=== PATIENT | female | born 1985 | race Caucasian/White ===

== ENCOUNTER 2018-04-09 19:12 | Emergency (ER) | payer OTHER ==
[2018-04-09 20:07] LABS: BASOPHILS # (AUTO) 0.1 10^3/uL (0.0-0.1); BASOPHILS % (AUTO) 0.6 %; EOSINOPHILS # (AUTO) 0.1 10^3/uL (0.0-0.7); EOSINOPHILS % (AUTO) 1.7 %; HGB - HEMOGLOBIN 13.5 g/dL (12.0-16.0); LYMPHOCYTES # (AUTO) 2.2 10^3/uL (1.5-3.5); LYMPHOCYTES % (AUTO) 25.3 %; MEAN CORPUSCULAR HEMOGLOBIN 32.6 pg (27.0-31.0); MEAN CORPUSCULAR HGB CONC 34.7 g/dL (32.0-36.0); MEAN CORPUSCULAR VOLUME 94.1 fL (81.0-99.0); MEAN PLATELET VOLUME 7.3 fL (7.9-10.8); MONOCYTES # (AUTO) 0.5 10^3/uL (0.0-1.0); MONOCYTES % (AUTO) 6.2 %; NEUTROPHILS # (AUTO) 5.8 10^3/uL (1.5-6.6); NEUTROPHILS % (AUTO) 66.2 %; PLT - PLATELET COUNT 345 10^3/uL (130-450); RED BLOOD COUNT 4.14 10^6/uL (4.20-5.40); RED CELL DISTRIBUTION WIDTH 13.4 % (12.0-15.0); WHITE BLOOD COUNT 8.7 x10^3/uL (4.8-10.8)
[2018-04-09 20:24] LABS: ALBUMIN 3.5 g/dL (3.2-5.5); BILIRUBIN,TOTAL 0.7 mg/dL (0.2-1.0); CALCIUM 9.3 mg/dL (8.5-10.3); CREATININE 0.7 mg/dL (0.4-1.0); TOTAL PROTEIN 6.9 g/dL (6.7-8.2)
--- NOTE | 2018-04-09 21:14 | ED Physician Documentation ---
PD HPI CHEST PAIN - Stated complaint Stated Complaint: CP/POST CSECTION 6 DAYS - Chief complaint Chief Complaint: Cardiac - History obtained from History obtained from: Patient - History of Present Illness Timing - onset: Other (She is 6 Days out from a . 3 days ago she started developed sharp pain just the left of midline in the chest which was better if she arched her back which became worse today. It is also better she lifts up her left breast. There is no shortness of breath, pedal edema, or calf pain. No history of DVT or PE.) Review of Systems Constitutional: denies: Fever, Chills Cardiac: reports: Chest pain / pressure. denies: Palpitations, Pedal edema, Calf pain Respiratory: denies: Dyspnea, Cough PD PAST MEDICAL HISTORY - Present Medications Home Medications: Ambulatory Orders Medication Instructions Recorded Confirmed No Known Home Medications [No 04/09/18 04/09/18 Known Home Medications] - Allergies Allergies/Adverse Reactions: Allergies Allergy/AdvReac Type Severity Reaction Status Date / Time No Known Drug Allergies Allergy Verified 04/09/18 19:31 PD ED PE NORMAL - Vitals Vital signs reviewed: Yes - General General: Alert and oriented X 3, No acute distress - Neck Neck: Supple, no meningeal sign, No bony TTP - Cardiac Cardiac: RRR, No murmur - Respiratory Respiratory: No respiratory distress, Clear bilaterally - Abdomen Abdomen: Normal bowel sounds, Soft, Non tender - Extremities Extremities: No edema, No calf tenderness / cord - Neuro Neuro: Alert and oriented X 3, Normal speech - Psych Psych: Normal mood, Normal affect Results - Vitals Vitals: Vital Signs - 24 hr 04/09/18 04/09/18 04/09/18 19:27 21:00 21:47 Temperature 36.5 C Heart Rate 101 H 88 76 Respiratory 18 18 16 Rate Blood Pressure 153/112 H 160/84 H 155/84 H O2 Saturation 99 100 99 04/09/18 22:28 Temperature Heart Rate 84 Respiratory 20 Rate Blood Pressure 152/87 H O2 Saturation 97 Oxygen O2 Source Room air - EKG (time done) 1929 Rate: Rate (enter#) (88) Rhythm: NSR [place]: Normal Intervals: Normal MT QRS: Normal Ischemia: Normal ST segments Computer interpretation: Agree with computer - Labs Labs: Laboratory Tests 04/09/18 04/09/18 04/09/18 20:01 20:01 20:01 WBC 8.7 RBC 4.14 L Hgb 13.5 Hct 39.0 MCV 94.1 MCH 32.6 H MCHC 34.7 RDW 13.4 Plt Count 345 MPV 7.3 L Neut # (Auto) 5.8 Lymph # (Auto) 2.2 Slope # (Auto) 0.5 Eos # (Auto) 0.1 Baso # (Auto) 0.1 Absolute Nucleated RBC 0.01 Nucleated RBC % 0.1 D-Dimer 765.3 H Sodium 140 Potassium 4.1 Chloride 104 Carbon Dioxide 27 Anion Gap 9.0 BUN 12 Creatinine 0.7 Estimated GFR (MDRD) 98 Glucose 106 H Calcium 9.3 Total Bilirubin 0.7 AST 24 ALT 23 Alkaline Phosphatase 125 H Troponin I Total Protein 6.9 Albumin 3.5 Globulin 3.4 Albumin/Globulin Ratio 1.0 Lipase 24 04/09/18 20:01 WBC RBC Hgb Hct MCV MCH MCHC RDW Plt Count MPV Neut # (Auto) Lymph # (Auto) Slope # (Auto) Eos # (Auto) Baso # (Auto) Absolute Nucleated RBC Nucleated RBC % D-Dimer Sodium Potassium Chloride Carbon Dioxide Anion Gap BUN Creatinine Estimated GFR (MDRD) Glucose Calcium Total Bilirubin AST ALT Alkaline Phosphatase Troponin I < 0.04 Total Protein Albumin Globulin Albumin/Globulin Ratio Lipase - Rads (name of study) CTA Chest Radiology: EMP read contemporaneously (Trace L effusion and minimal bibasilar atalectasis) PD MEDICAL DECISION MAKING - ED course ED course: 32-year-old woman with postsurgical chest pain that seems musculoskeletal. A d- dimer was done and positive, but low specificity after procedure like a C- section, but CT done and negative for PE. - Sepsis Event Vital Signs: Vital Signs - 24 hr 04/09/18 04/09/18 04/09/18 19:27 21:00 21:47 Temperature 36.5 C Heart Rate 101 H 88 76 Respiratory 18 18 16 Rate Blood Pressure 153/112 H 160/84 H 155/84 H O2 Saturation 99 100 99 04/09/18 22:28 Temperature Heart Rate 84 Respiratory 20 Rate Blood Pressure 152/87 H O2 Saturation 97 Oxygen O2 Source Room air Departure - Departure Disposition: 01 Home, Self Care Clinical Impression: Chest wall pain Condition: Good Record reviewed to determine appropriate education?: Yes Instructions: ED Chest Pain NonCardiac Comments: Your blood pressure was elevated today on check into the emergency department. This does not mean that you have hypertension, it is a common phenomenon to come to the emergency department and have elevated blood pressure. I recommend that you see your primary care physician within the week to have it rechecked when you are feeling better. Discharge Date/Time: 04/09/18 22:30
[2018-04-09] MEDS ORDERED: IOPAMIDOL-300 100 ML VIAL ONE (21:18)
[2018-04-09] MEDS ORDERED: IOPAMIDOL-300 100 ML VIAL IVP ONE (21:49)
--- NOTE | 2018-04-09 22:10 | CT Report ---
Procedure Date: 04/09/2018 Accession Number: [id number] / [id number] Procedure: CT - Chest Angio (PE) CPT Code: FULL RESULT: EXAM: CT ANGIOGRAM CHEST EXAM DATE: 04/09/2018 09:51 PM. CLINICAL HISTORY: Chest pain 6d post csection. COMPARISON: None. TECHNIQUE: Routine helical imaging was performed through the chest in the pulmonary arterial phase. IV Contrast: ISOVUE 300 80mL. Reconstructions: Coronal 3-D MIP reconstructions.Sagittal and coronal. In accordance with CT protocol optimization, one or more of the following dose reduction techniques were utilized for this exam: automated exposure control, adjustment of mA and/or KV based on patient size, or use of iterative reconstructive technique. FINDINGS: Pulmonary Arteries: Diagnostic quality: Adequate through the segmental arteries. No evidence for acute or chronic pulmonary emboli. RV/LV is within normal limits. There is no interventricular septal bowing. There is no reflux of contrast material in the IVC. Lungs/Pleura: Trace left effusion and minimal dependent atelectasis. No pneumothorax. Mediastinum: Normal. No cardiac enlargement or adenopathy. Thoracic Aorta: Unremarkable. Upper Abdomen: Unremarkable. Other: None. IMPRESSION: No evidence of pulmonary embolus. Trace left effusion and minimal basilar atelectasis. RAD[facility]
[2018-04-09 22:29] VITALS: BP 152/87
== END 2018-04-09 22:30 | disposition home or self-care (01) ==
LOC: ED 19:12
DX: R07.89 Other chest pain (principal); R03.0 Elevated blood-pressure reading, without diagnosis of hypertension; Z98.890 Other specified postprocedural states
CPT/HCPCS: 71275; 80053; 83690; 84484; 85025; 85379; 93005; 99283; Q9967; 36415